=== PATIENT | female | born 1970 | race Caucasian/White ===

== ENCOUNTER 2025-08-16 10:40 | Outpatient (REF) | payer BC, SELFPAY ==
--- OUTSIDE RECORDS SUMMARY | 2024-11-25 05:41 | XMS_ITS ---
Author Organization [facility] Address [address] [place] [phone] Care Team Providers Care Enterostomal Therapy Nurse Name Role Phone TAYLER LEATHA Primary Care Provider [phone] REASON FOR VISIT (2)thyroid Encounters Encounter Location Date Provider Diagnosis [address] [address] 11/25/2024 LEATHA LESTER Hypothyroidism, unspecified type E03.9 ASSESSMENTS Encounter Date Diagnosis Assessment Notes Treatment Notes Treatment Clinical Notes Section Notes 11/25/2024 Hypothyroidism, unspecified type (ICD-10 - E03.9) PLAN OF TREATMENT Future Test Test Name Order Date T4 Free Direct (Thyroxine)-[id number] 2024 TSH-[id number] 2025 BMP8+eGFR-550033 2025
--- OUTSIDE RECORDS SUMMARY | 2024-11-26 02:32 | XMS_ITS ---
Author Organization [facility] Address [address] [place] [phone] Care Team Providers Care Community Leader Name Role Phone LEATHA LESTER Primary Care Provider [phone] REASON FOR VISIT (2)lipids Encounters Encounter Location Date Provider Diagnosis [facility] [address] [place] [address] 11/26/2024 LEATHA LESTER PLAN OF TREATMENT No Information
--- OUTSIDE RECORDS SUMMARY | 2025-01-11 09:35 | XMS_ITS ---
Author Organization [facility] Address [address] [place] [phone] Care Team Providers Care Quick Mixer Operator Name Role Phone LEATHA LESTER Primary Care Provider [phone] REASON FOR VISIT (2) b/l breast biopsy results Encounters Encounter Location Date Provider Diagnosis [facility] [address] [place] [address] 01/11/2025 LEATHA LESTER PLAN OF TREATMENT No Information
--- OUTSIDE RECORDS SUMMARY | 2025-01-12 05:12 | XMS_ITS ---
Author Organization [facility] Address [address] [place] [address] Care Team Providers Care Sanitarian Aide Name Role Phone TAYLER LEATHA Primary Care Provider REASON FOR REFERRAL Reason Set up referral for Dr. Yaneth Garcia for an abnormal breast biopsy question surgery send copy of my last note and the [facility] mammograms ultrasounds and breast biopsy results to her Diagnosis 1 Abnormal breast biop sy (R89.7) Referral Organization [facility] Referring Provider First Name LEATHA Referring Provider Last Name TAYLER Referring Provider Speciality Internal M edicine Referred Provider YANETH GARCIA Referred Provider Specialty Surgery General Notes Jessica LANGE Admin 01/2025 08:08:55 AM > faxed medical referral, note and most recent labs to [phone]>faxed separately to same number is 12-17-24 Surgical Pathology>12/21 mammogram>11/14/24 Mammo>11/14/24 U/S breast>requesting URGENT visit please<insurance referal approved and entered with a start date of 01/14/25 with 12 visits, faxed referral>encounter closed Referral Priority Urgent Referral Appointment Date 01/14/2025 PROBLEMS Problem Type ICD Code Onset Dates Problem Status W/U Status Risk SNOMED Code Notes Problem Abnormal breast biopsy (R89.7) Active confirmed [id number] Encounters Encounter Location Date Provider Diagnosis [address] [address] 01/12/2025 LEATHA LESTER Abnormal breast biopsy R89.7 ASSESSMENTS Encounter Date Diagnosis Assessment Notes Treatment Notes Treatment Clinical Notes Section Notes 01/12/2025 Abnormal breast biopsy (ICD-10 - R89.7) PLAN OF TREATMENT Referrals Referral Date Details 01/14/2025 01/14/2025, Set up r wilfred for Dr. Yaneth Garcia for an abnormal breast biopsy question surgery send copy of my last note and the [facility] mammograms ultrasounds and breast biopsy results to her, YANETH GARCIA Consultation Request Notes Referral Date Referring Provider Referred Provider Not es 01/12/2025 LEATHA LESTER SARAH Set up referral for Dr. Yaneth Garcia for an abnormal breast biopsy question surgery send copy of my last note and the [facility] mammograms ultrasounds and breast biopsy results to her
--- OUTSIDE RECORDS SUMMARY | 2025-01-25 05:18 | XMS_ITS ---
Author Organization [facility] Address [address] [place] [phone] Care Team Providers Care Supervisor Pumping Name Role Phone LEATHA LESTER Primary Care Provider REASON FOR VISIT updated pharmacy Encounters Encounter Location Date Provider Diagnosis [facility] [address] [place] [address] 01/25/2025 LEATHA LESTER PLAN OF TREATMENT No Information
--- OUTSIDE RECORDS SUMMARY | 2025-03-08 04:32 | XMS_ITS ---
Author Organization [facility] Address [address] [place] [phone] Care Team Providers Care Abrading Machine Tender Name Role Phone LEATHA LESTER Primary Care Provider REASON FOR VISIT Review Notes Encounters Encounter Location Date Provider Diagnosis [facility] [address] [place] [address] 03/08/2025 LEATHA LESTER PLAN OF TREATMENT No Information
--- OUTSIDE RECORDS SUMMARY | 2025-05-14 06:55 | XMS_ITS ---
Author Organization [facility] Address [address] [place] [phone] Care Team Providers Care Auto Dealership Porter Name Role Phone LEATHA LESTER Primary Care Provider REASON FOR VISIT canceled appt Encounters Encounter Location Date Provider Diagnosis [facility] [address] [place] [address] 05/14/2025 LEATHA LESTER PLAN OF TREATMENT No Information
--- OUTSIDE RECORDS SUMMARY | 2025-05-16 08:15 | XMS_ITS ---
Author Organization [facility] Address [address] [place] [phone] Care Team Providers Care Finishing Supervisor Plastic Sheets Name Role Phone LEATHA LESTER Primary Care Provider REASON FOR VISIT 42 6mo F/U MEDICATIONS Medication SIG (Take, Route, Frequency, Duration) Notes Start Date End Date Status hydroCHLOROthiazide 25 MG TAKE 1 TABLET BY MOUTH DAILY IN THE MORNING for 90 Unknown Mounjaro 2.5 MG/0.5ML ADMINISTER 2.5 MG UNDER THE SKIN EVERY WEEK DIRECTED for 28 Unknown Levothyroxine Sodium 150 MCG TAKE 1 TABL ET BY MOUTH EVERY DAY DIRECTED for 90 Unknown Encounters Encounter Location Date Provider Diagnosis [address] [address] 05/16/2025 LEATHA LESTER Hypothyroidism, unspecified type E03.9 ; Prediabetes R73.03 ; Primary hypertension I10 ; Other hyperlipidemia E78.49 ; Skin cancer screening Z12.83 ; Colon cancer screening Z12.11 and Abnormal mammogram R92.8 ASSESSMENTS Encounter Date Diagnosis Assessment Notes Treatment Notes Treatment Clinical Notes Section Notes 05/16/2025 Hypothyroidism, unspecified type (ICD-10 - E03.9) 05/16/2025 Prediabetes (ICD-10 - R73.03) 05/16/2025 Primary hypertension (ICD-10 - I10) 05/16/2025 Other hyperlipidemia (ICD-10 - E78.49) 05/16/2025 Skin cancer screening (ICD-10 - Z12.83) 05/16/2025 Colon cancer screening (ICD-10 - Z12.11) 05/16/2025 Abnormal mammogram (ICD-10 - R92.8) PLAN OF TREATMENT Pending Test Test Name Order Date EKG 05/16/2025 Future Test Test Name Order Date Hemoglobin [id number] 05/10/2025 T4 Free Direct (Thyroxine)-[id number] 2024 TSH-[id number] 05/10/2025 CBC, Platelet, w/o Differential-[id number] 0 05/10/2025 Lipid Panel-[id number] 05/10/2025 Hepatic Function Panel ([id number] 2024 HCV Antibody-037096 05/10/2025 BMP8+eGFR-[id number] 05/10/2025 Next Appt Details Follow Up: Follow-up 6 month s labs pending EKG today, Reason: History and Physical Notes * HPI (History of Present Illness) Category Sub-Category Detail Notes Category Not es General Follow-up hyper tension. See review of systems below
--- OUTSIDE RECORDS SUMMARY | 2025-07-25 08:37 | XMS_ITS ---
Author Organization [facility] Address [address] [place] [phone] Care Team Providers Care Residential Designer Name Role Phone LEATHA LESTER Primary Care Provider REASON FOR VISIT Referral Encounters Encounter Location Date Provider Diagnosis [facility] [address] [place] [address] 07/25/2025 LEATHA LESTER PLAN OF TREATMENT No Information
--- OUTSIDE RECORDS SUMMARY | 2025-07-26 03:40 | XMS_ITS ---
Author Organization [facility] Address [address] [place] [phone] Care Team Providers Care Internal Combustion Engine Assembler Name Role Phone LEATHA LESTER Primary Care Provider REASON FOR VISIT thyroid Encounters Encounter Location Date Provider Diagnosis [address] [address] 07/26/2025 LEATHA LESTER Hypothyroidism, unspecified type E03.9 ASSESSMENTS Encounter Date Diagnosis Assessment Notes Treatment Notes Treatment Clinical Notes Section Notes 07/26/2025 Hypothyroidism, unspecified type (ICD-10 - E03.9) PLAN OF TREATMENT Future Test Test Name Order Date TSH+Free [id number] 09/06/2025
--- OUTSIDE RECORDS SUMMARY | 2025-08-15 09:24 | XMS_ITS | Encounter Summary ---
Author Organization [facility] Address [address] [place] [address] Care Team Providers Care Front Desk Supervisor Name Role Phone Rahul Cam MD Primary Care Provider [phone] Encounter Details Date Type Department Care Team (Late Contact Info) Description 08/15/2025 9:24 AM EST Hospital Encounter [facility] Radiation Oncology [address] [place] [phone] Social History Tobacco Use Types Packs/Day Years Used Date Smoking Tobacco: Never Smokeless Tobacco: Never Alcohol Use Standard Drinks/Week Comments No 0 (1 standard drink = 0.6 oz pur e alcohol) Interpersonal Safety Answer Date Record ed Physical Abuse Unrecognized value 07/11/2025 Verbal Abuse Unrecognized value 07/11/2025 Comments No Sex and Gender Information Value Date Recorded Sex Assigned at Female 11/02/2024 8:19 AM EST Legal Sex Female 1:22 PM EST Gender Identity Female 11/02/2024 8:19 AM EST Sexual Orientation Straight 11/02/2024 8: 19 AM EST 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 Not on file Not on f ile documented as of this encounter Plan of Treatment Upcoming Encounters Date Type Department Care Team (Late Contact Info) Description 09/09/2025 9:30 AM EST Office Visit [facility] Hematology Oncology [address] [place] [phone] Breann Mendez, [address] [place] [address] documented as of this encounter Visit Diagnoses Not on filedocumented in this encounter Care Teams Front Desk Supervisor Relationship Specialty Start Date End Date Rahul Cam MD [address] [place] [phone] PCP - General Internal Medicine 11/09/16 documented as of this encounter
--- OUTSIDE RECORDS SUMMARY | 2025-08-15 09:25 | XMS_ITS | Encounter Summary ---
Author Organization [facility] Address [address] [place] [address] Care Team Providers Care [employer] Name Role Phone Rahul Cam MD Primary Care Provider + [phone] Reason for Referral * Radiation Therapy (Routine) - Pending Review Specialty Diagnoses / Procedures Referred By Marissa t Referred To Contact Radiation Oncology Diagnoses Ductal carcinoma in situ (DCIS) of right breast Procedures Rad Onc Treatment Planning Simulation Darwin Moon MD [address] [place] [address] Phone: tel: fax: Referral ID Status Reason Start Date Expiration Date V isits Requested Visits Authorized [id number] Pending Review 08/15/2025 08/15/2026 1 1 * Consultation (Routine) - Pending Review Specialty Diagnoses / Procedures Referred By Contguadalupe t Referred To Contact Radiation Oncology Diagnoses Breast neoplasm, Tis (DCIS), [facility] [address] [place] [address] Phone: tel: fax: [facility] Radiation Oncology [address] [place] [address] Phone: tel: fax: Referral ID Status Reason Start Date Expiration Date Visits Requested Visits Authorized [id number] Pending Review Specialty Services Required 5 07/24/2026 1 1 Scheduling Instructions Okay to schedule after surgery. Reason for Visit * Reason Comments Breast Cancer Consult * Consultation (Routine) - Pending Review Specialty Diagnoses / Procedures Referred By Contguadalupe t Referred To Contact Radiation Oncology Diagnoses Breast neoplasm, Tis (DCIS), right Yaneth Florian MD [address] [place] [address] Phone: tel: fax: [facility] Radiation Oncology [address] [place] [address] Phone: tel: fax: Referral ID Status Reason Start Date Expiration Date Visits Requested Visits Authorized [id number] Pending Review Specialty Services Required 5 07/24/2026 1 1 Encounter Details Date Type Department Care Team (Latest Contact Info) Description 08/15/2025 9:25 AM EST Hospital Encounter [facility] Radiation Oncology [address] [place] [phone] Darwin Moon MD [address], [place] [phone] Ductal carcinoma in situ (DCIS) of right breast (Primary Dx) Social History Tobacco Use Types Packs/Day Years Used Date Smoking Tobacco: Never Smokeless Tobacco: Never Tobacco Cessation:Counseling Given: Not Answered Alcohol Use Standard Drinks/Week Comments No 0 [...] f ile documented as of this encounter Last Filed Vital Signs Vital Sign Reading Time Taken Comments Blood Pressure 129/67 08/15/2025 9:39 AM EST Pulse 84 08/15/2025 9:39 AM EST Temperature - - Respiratory Rate - - Oxygen Saturation 100% 08/15/2025 9:39 AM EST Inhaled Oxygen Concentration - - Weight 91.9 kg (202 lb 9.6 oz) 08/15/2025 9:39 A M EST Height 167.6 cm (5' 6 ) 08/15/2025 9:39 AM EST Body Mass Index 32.7 08/15/2025 9:39 AM EST documented in this encounter Progress Notes * Negar Barton, DATA MODELING SPECIALIST - 08/15/2025 10:00 AM EST Images from the original note were not included. Oncological History: 10/31/2024 Screening Mammogram at [facility] (in PACS) Findings New area of distortion in upper outer right breast at middle third depth. More inferiorly on the MLview same depth there is new distortion. Increase calcifications in the lower outer right breast invicinity of new distortion. New area of distortion in the left upper outer quadrant at middle third depth at approximately 3:00axis, 7 cm from nipple. 11/14/2024 Diagnostic Mammogram at [facility] (in PACS) 12/17/2024 Biopsy Breasts [facility] 04/10/2025 MRI Breast Impression There is a large amount of heterogeneous nonmass background enhancement bilaterally. This limits the sensitivity of the exam and could obscure a significant abnormality. The amount of background enhancement is similar in the region of the bilateral breast biopsies. I believe this study can be used as a reference for subsequent high risk MRI. Recommend surgical excision based upon the previous pathology results. Recommend bilateral high risk MRI in one year 07/11/2025 Bilateral Excision Breast Mass with Dr. Nupur Florian. Final Diagnosis A. Right breast, excision: Ductal carcinoma in situ, 4 mm - Margins uninvolved Complex sclerosing lesions - Margins uninvolved Minute intraductal papilloma, columnar cell change/hyperplasia, usual ductal hyperplasia, sclerosing adenosis, adenosis, pseudoangiomatous stromal hyperplasia, fibroadenomatoid change, apocrine metaplasia, and cysts Microscopic changes of biopsy tract present at edge of specimen B. Right breast, anterior re-excision: Benign breast tissue with sclerosing adenosis, minute intraductal papilloma, columnar cell change/hyperplasia, usual ductal hyperplasia, adenosis, pseudoangiomatous stromal hyperplasia, apocrine metaplasia, and cysts No atypia or carcinoma identified Margins are unremarkable C. Left breast, excision: Complex sclerosing lesions - Margins uninvolved Minute intraductal papilloma, usual ductal hyperplasia, columnar cell change/hyperplasia, apocrine metaplasia, and cysts Biopsy site changes with top hat clip No atypia or carcinoma identified D. Right breast, lateral re-excision: Complex sclerosing lesion - Margins uninvolved Minute intraductal papilloma, usual ductal hyperplasia, columnar cell change/hyperplasia, fibroadenomatoid change, apocrine metaplasia, and cysts Biopsy site changes with mini cork clip E. Right breast, superior and lateral re-excision: Benign breast tissue with usual ductal hyperplasia, columnar cell change/hyperplasia, adenosis, sclerosing adenosis, fibroadenomatoid change, apocrine metaplasia, and cysts Margins are unremarkable DCIS OF THE BREAST: Resection 8th Edition - Protocol posted: 2DCIS OF THE BREAST: RESECTION - All Specimens SPECIMEN Procedure Excision (less than total mastectomy) Specimen Laterality Right TUMOR Histologic Type Ductal carcinoma in situ Size (Extent) of DCIS Estimated size (extent) of DCIS is at least (Millimeters): 4 mm Architectural Patterns Cystic hypersecretory pattern Nuclear Grade Grade III (high) Necrosis Present, focal (small foci or single cell necrosis) Microcalcifications Present in DCIS Present in nonneoplastic tissue MARGINS Margin Status All margins negative for DCIS Distance from DCIS to Closest Margin 5 mm REGIONAL LYMPH NODES Regional Lymph Node Status Not applicable (no regional lymph nodes submitted or found) PATHOLOGIC STAGE CLASSIFICATION (pTNM, AJCC 8th Edition) Reporting of pT, pN, and (when applicable) pM categories is based on information available to the pathologist at the time the report is issued. As per the AJCC (Chapter 1, 8th Ed.) it is the managingphysician's responsibility to establish the final pathologic stage based upon all pertinent information, including but potentially not limited to this pathology report. pT Category pTis (DCIS) pN Category pN not assigned (no nodes submitted or found) 08/01/[address] Mendez. Discussed aromatase inhibitor therapy. Bone density and hormone level ordered. Continued MRI due to dense breast tissue. Follow-Up 09/09/2025 Dr. Mendez. 10/21/2025 DEXA * Corinne Chopra MA - 08/15/2025 10:00 AM EST Patient is here for in office consult with Dr. Moon Patient reports some mild tenderness, otherwise no symptoms. Medications and allergies reviewed and reconciled. * Darwin Moon MD - 08/15/2025 10:00 AM EST Radiation Oncology Consult Staff Physician: Darwin Moon M.D. Requesting Physician: Yaneth Florian M.D. Date of Service: 08/15/2025 Alysa Leach (: 1970) presents today for consultation as requested by Yaneth Florian,*, regarding treatment for breast carcinoma Assessment/Plan IMPRESSION: Ms. Leach appears to be doing well. She has some fluid within the right lumpectomy and an exposed suture in the left breast. OPINIONS AND RECOMMENDATIONS: I spoke with her regarding a course of adjuvant radiation to the right breast to reduce her risk for recurrence. Given her age, the grade and the recurrence score she is at risk for recurrence. I reviewed the typical course of treatment with her and discussed the potential side effects. We also talked about the CT for planning and the tattoos for positioning. After our discussion, consent was signed. She will return shortly for the planning CT. She will receive 20 treatments. She will keep on an eye on the exposed suture. If it starts to bother her or the redness of the skin starts to spread out then she will call Dr. Florian. She has a follow with Dr. Mendez to continue discussing endocrine therapy. Subjective HISTORY OF PRESENT ILLNESS: Alysa Leach is a 55 y.o. female who was recently diagnosed with DCIS of the right breast, Grade III, Stage O, ER low positive. She has had yearly mammograms without any unusual findings until this spring when a mammogram at [facility] showed developing calcifications in the right breast and architectural distortion in the left. Biopsies returned metaplasia and adenosis. She was seen by Dr. Florian who ordered a MRI of both breasts. That study completed on 04/10/25 showed suspicious lesions in both breast, BI-RADS 4. She underwent mag seed placement in both breasts and then bilateral excisional biopsies. The left was c/w complex sclerosing lesions. The right identified ductal carcinoma in situ, 4mm, Grade III, ERweakly positive. The margins were clear. Oncotype DX recurrence score 27. She was seen by Dr. Mendez. She was referred her for adjuvant radiation. At the time of contact,she felt she was doing well. She feels her right breast is swollen, but not painful. She thinks there is a stitch coming out on the left. 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 HENT: Negative. Respiratory: Negative. Cardiovascular: Negative. Gastrointestinal: Negative. Genitourinary: Negative. Musculoskeletal: Negative. Skin: Positive for wound. Neurological: Negative. Hematological: Negative. Psychiatric/Behavioral: Negative. Breast: Positive for breast lump or mass. The Karnofsky performance scale today is 100, Fully active, able to carry on all pre-disease performed without restriction (ECOG equivalent 0). Objective PHYSICAL EXAM: Visit Vitals BP 129/67 (BP Location: Right arm, Patient Position: Sitting, BP Cuff Size: Adult) Pulse 84 Ht 1.676 m (66 ) Wt 91.9 kg (202 lb 9.6 oz) SpO2 100% BMI 32.70 kg/m?? OB Status Hysterectomy Smoking Status Never BSA 2.01 m?? Body mass index is 32.7 kg/m??. Physical Exam HENT: Head: Normocephalic. Cardiovascular: Rate and Rhythm: Normal rate and regular rhythm. Pulmonary: Effort: Pulmonary effort is normal. Breath sounds: Normal breath sounds. Chest: Comments: Right breast larger than left. There is swelling/fullness in the right lower outer quadrant with a very faint pinkness overlying the area. There is an incision in the outer lower quadrant. In the left breast on the outer lower quadrant is a healing incision. At the lateral edge a suture is exposed. There is a slight amount of erythema of the skin at the base of the suture. No suspiciousmasses in either breast. Abdominal: General: Abdomen is flat. Bowel sounds are normal. Palpations: Abdomen is soft. Musculoskeletal: General: No swelling. Cervical back: Normal range of motion. Lymphadenopathy: Upper Body: Right upper body: No supraclavicular or axillary adenopathy. Left upper body: No supraclavicular or axillary adenopathy. Skin: General: Skin is warm. Neurological: Mental Status: She is alert. DIAGNOSTIC REPORTS REVIEWED: Imaging: MRI, mammo Laboratory/Pathology: lumpectomy Procedure: excisional biopsies. RADIATION TREATMENT PLANNING SIMULATION ORDER Rad Onc Treatment Planning Simulation Ordered at: 08/15/25 1112 Is this for a new course of treatment? Yes Treatment Goal: Curative Treatment Technique: 3D INFORMATION SUPPORT PROJECT MANAGER Image Fusion? No Approximate Dose: 5,272 Measurement Unit: cGy Approximate Fractions: 20 Is Boost / Cone down anticipated? Yes Concurrent Chemotherapy? No Treatment Site: Breast Laterality: Right Is Oncotype / Mammoprint pending? No Will regional nodes be treated? No Breathhold required? No test needed? No Has the pt received prior radiation? No Pacemaker, ICD, or any Implanted Device? No Does the pt need an white sugar boiler? No Has the patient been consented? Yes Clinical Trial? No Patient Position? Supine Head / Neck Position? Head Left Arms Position? Up Legs Position? Neutral Immobilization Device(s)? Board Vac-Pallavi Board Type? Breast Board Supine IGRT anticipated? No Do you anticipate the field size being >20 cm? (i.e. whole pelvis, 3 field breast): No Contrast Needed? No CrCl cannot be calculated (No successful lab value found.). [1] Past Medical History: Diagnosis Date Breast cancer (CMS/HCC V24, CMS/HCC V28) 07/2025 Cancer (CMS/HCC V24, CMS/[facility] V28) Delayed emergence from general anesthesia Historical Medical DX 12/28/2016 DX:NO ACTIVE MEDICAL PROBLEMS History of sebaceous cyst DX:History of sebaceous cyst; COMMENT: Anterior chest wall Hypertension Hypothyroidism PONV (postoperative nausea and vomiting) 2024 [2] Past Surgical History: Procedure Laterality Date BREAST BIOPSY 12/2024 HYSTERECTOMY PROCEDURE: HISTORICAL HYSTERECTOMY HYSTERECTOMY OTHER SURGICAL HISTORY THYROID SURGERY TOTAL THYROIDECTOMY RADATIONED AFTER [3] Family History Problem Relation Name Age of Onset Hypertension Father Don Breast cancer Paternal Grandmother [4] Current Outpatient Medications Medication Sig Dispense Refill hydroCHLOROthiazide (HYDRODIURIL) 25 mg tablet Take 1 tablet (25 mg total) by mouth 1 (one) time each day in the morning. levothyroxine (SYNTHROID, LEVOTHROID) 150 mcg tablet Take 1 tablet (150 mcg total) by mouth 1 (one)time each day. Mounjaro 2.5 mg/0.5 mL injection Inject 0.5 mL (2.5 mg total) under the skin every 7 (seven) days. No current facility-administered medications for this encounter. documented in this encounter Plan of Treatment Upcoming Encounters Date Type Department Care Team (Late st Contact Info) Description 09/09/2025 9:30 AM EST Office Visit [facility] Hematology Oncology [address] [place] [phone] Breann Mendez DO [address] [place] [address] Scheduled Orders Name Type Priority Associated Diagnoses Order Schedule Rad Onc Treatment Planning Simulation Radiation Oncology Routine Ductal carcinoma in situ (DCIS) of right breast 1 Occurrences starting 08/15/2025 until 08/15/2026 Scheduled Referrals Name Type Priority Associated Diagnoses Order Schedule Ambulatory referral to Radiation Oncology Outpatient Referral Routine Once for 1 Occurrences starting 08/15/2025 until 08/15/2025 documented as of this encounter Visit Diagnoses Diagnosis Ductal carcinoma in situ (DCIS) of right breast- Primary documented in this encounter Care Teams [employer] Relationship Specialty Start Date End Date Rahul Cam MD [address] [place] [address] PCP - General Internal Medicine 11/09/16 documented as of this encounter
--- NOTE | ~2025-08-16 | MM_ITS ---
EXAMINATION: DXA BONE DENSITY AXIAL HISTORY: OSTEOPOROSIS TECHNIQUE: [employer] Dual energy absorptiometry (DEXA) of the lumbar spine, total left hip, and femoral neck was performed. COMPARISON: There are no prior studies for comparison. FINDINGS: The bone mineral density of the lumbar spine is 1.293 g/cm2, corresponding to a T-score of 0.9, and a Z-score of 0.9. This is indicative of normal bone mineral density. The bone mineral density of the left total hip is 1.020 g/cm2, corresponding to a T-score of 0.1, and a Z-score of 0.2. This is indicative of normal bone mineral density. The bone mineral density of the left femoral neck is 0.951 g/cm2, corresponding to a T-score of -0.6, and a Z-score of -0.1. This is indicative of normal bone mineral density. FRACTURE RISK: The FRAX index suggests a risk of major osteoporotic fracture of 5.3%, and of hip fracture 0.2%. MM/XR DEXA axial skeleton IMPRESSION: Based on bone mineral density, and according to World Health Organization (WHO) criteria, the diagnosis is consistent with normal bone mineral density. Statistically, 68% of repeat scans fall within 1 SD (+/- 0.010 g/cm2 for AP spine L1-L4) and 1 SD (+/- 0.012 g/cm2 for femur total) FRAX is a trademark of the [employer] [place] [employer] Met[employer], a World Health Organization (WHO) Collaborating Center. Electronically signed by: Vinayak Curiel MD 08/16/2025 11:44 AM [facility] [place]
--- OUTSIDE RECORDS SUMMARY | 2025-08-16 12:41 | XMS_ITS | Encounter Summary ---
Author Organization [facility] Address [address] [place] [address] Care Team Providers Care Solid Waste Facility Supervisor Name Role Phone Rahul Cam MD Primary Care Provider + [phone] Encounter Details Date Type Department Care Team (Late st Contact Info) Description 08/07/2025 Telephone [facility] Hematology Oncology [address] [place] [phone] Breann Mendez, DO [address] [place] [address] Social History Tobacco Use Types Packs/Day Years [...] Orientation Straight 11/02/2024 8: 19 AM EST documented as of this encounter Progress Notes * Breann Mendez, - 08/15/2025 10:15 PM EST Please find out when this Dxa is going to be so we can request the result from Evgeny before her next appt Thanks * Osiris Carmen - 08/07/2025 10:07 AM EST Order faxed * Gwen Barreto - 08/07/2025 8:20 AM EST Patient is scheduled for her bone density in October here at [facility]. She is seeking to have this donesooner and [facility] is able to give her a sooner date. She asks that this order be faxed to [facility] at [phone]. When she has the appt date and time at [facility], she will give us a call to make us aware of the date and time so we can cancel the October date here. documented in this encounter Plan of Treatment Upcoming Encounters Date Type Department Care Team (Late st Contact Info) Description 09/09/2025 9:30 AM EST Office Visit [facility] Hematology Oncology [address] [place] [phone] Breann Mendez DO [address] [place] [address] documented as of this encounter Visit Diagnoses Not on filedocumented in this encounter Care Teams Solid Waste Facility Supervisor Relationship Specialty Start Date End Date Rahul Cam MD [address] [place] [phone] PCP - General Internal Medicine 11/09/16 documented as of this encounter
--- OUTSIDE RECORDS SUMMARY | 2025-08-16 12:42 | XMS_ITS | Continuity of Care Document ---
Author Organization [facility] Address [address] [place] [address] Phone [phone] Care Team Providers Care Manager Talent Name Role Phone Rahul Cam M.D. Care Team Information Recei americo [phone] Problems Active Problems Provider Date Follicular thyroid carcinoma Tunde Carlson Onset: 05/31/2022 Essential hypertension Dante Mckeon M.D. Ons et: 05/31/2022 History of total thyroidectomy Dante Mckeon M.D. Onset: 05/31/2022 Hypothyroidism following radioiodine therapy Mervin Mckeon M.D. Onset: 05/31/2022 Hypothyroidism Dante Mckeon M.D. Onset: Social History Type Date Description Comments Sex Female Sex Unknown Tobacco Use Start: Unknown Never Smoked Cigarettes ETOH Use Never used alcohol Allergies and adverse reactions Description No Known Drug Allergies Medications Active Medications SIG Qnty Indications Order ing Provider Date Xuzntvbwgszywuaokls92 .5mg Tablets Take 1 Tablet By Mouth Every Day as Directed torey Mckeon M.D. 05/10/2022 Levothyroxine Beowxj291whm Tablets Alternate between 1/2 tablet and 1 whole tablet daily 90tabs Glo Singh NP 05/10/2022 Mounjaro2.5mg/0.5ML Solution Auto-Inject Administer 2.5 MG Under The Skin Every Week as Directed Rahul Cam M.D. Medications Administered in Office Medication SIG Qnty Indications Ordering Provider Date Injection Thyrotropin To 10 IuInjection Nurse 04/20/2022 Therapeutic, Prophylactic Or Diagnostic Injection Subq/ImInjection Nurse 04/20/2022 Injection Thyrotropin To 10 IuInjection Nurse 04/19/2022 Therapeutic, Prophylactic Or Diagnostic Injection Subq/ImInjection Nurse 04/19/2022 Vital Signs Date Vital Result Comment 07/25/2025 8:15am BP Systolic 120 mmHg BP Diastolic 84 mmHg Heart Rate 100 /min Height 66 inches 5'6 Weight 199.00 lb BMI (Body Mass Index) 32.1 kg/m2 Results Test Acquired Date Facility Test Result H/L Range Note TSH Rfx on Abnormal to Free T4 07/25/2025 [facility] TSH RFX On Abnormal To Free T4 5.170 uIU/mL High 0.450-4 .500 T4,Free (Direct) 1.53 ng/dL 0.82-1. 77 TSH Rfx on Abnormal to Free T4 11/24/2024 [facility] TSH RFX On Abnormal To Free T4 5.350 uIU/mL High 0.450-4 .500 T4,Free (Direct) 1.55 ng/dL 0.82-1. 77 Tgab+Thyroglobulin, Patricia Or LCMS 11/24/2024 [facility] Thyroglobulin Antibody <1.0 IU/mL 0.0-0.9 1 Thyroglobulin b y Patricia <0.1 ng/mL Low 1.5-38. 5 2 TSH With Reflex To FT4 11/15/2023 [facility] TSH With Reflex To FT4 0.23 uIU/mL Low (0.4-4. 2) Free T4 11/15/2023 [facility] Free T4 1.83 ng/dL High (0.70-1 .80) Thyroglobulin,Tumor MRKR W/RFLX 04/12/2023 [facility] Thyroglobulin,Tumor MRKR W/RFLX <1.0 3 Thyroglobulin Reflex Immunoassay 04/12/2023 [facility] Thyroglobulin Reflex Immunoassay <0.1 Low 4 TSH With Reflex To FT4 04/06/2023 [facility] TSH With Reflex To FT4 0.09 uIU/mL Low (0.4-4. 2) Antithyroglobulin AB 04/06/2023 [facility] Antithyroglobulin AB 3.8 IU/mL (<4.1) 5 Free T4 04/06/2023 [facility] Free T4 1.76 ng/dL (0.70-1 .80) Thyroglobulin,Tumor MRKR W/RFLX 04/06/2023 [facility] Thyroglobulin,Tumor MRKR W/RFLX <1.0 6 Thyroglobulin Reflex Immunoassay 04/06/2023 [facility] Thyroglobulin Reflex Immunoassay <0.1 Low 7 1 Thyroglobulin Antibo dy measured by Virginie Guildhall Methodology It should be noted that the presence of thyroglobulin antibodies may not be pathogenic nor diagnostic, especially at very low levels. The assay rn care transition has found that four percent of individuals without evidence of thyroid disease or autoimmunity will have positive TgAb levels up to 4 IU/mL. 2 According to the [facility] [employer] of Clinical Biochemistry, the reference interval for Thyroglobulin (TG) should be related to euthyroid patients and not for patients who underwent thyroidectomy. TG reference intervals for these patients depend on the residual mass of the thyroid tissue left after surgery. Establishing a post-operative baseline is recommended. The assay limit of quantitation is 0.1 ng/mL Thyroglobulin measured by Virginie Guildhall Immunometric Assay 3 Reference range: 0.0 to 0.9 Unit: IU/mL (NOTE) Thyroglobulin Antibody measured by Virginie Barney Methodology Test performed by [place] [place] [address] 4 Reference range: 1.5 to 38.5 Unit: ng/mL (NOTE) According to the National Academy of Clinical Biochemistry, the reference interval for Thyroglobulin (TG) should be related to euthyroid patients and not for patients who underwent thyroidectomy. TG reference intervals for these patients depend on the residual mass of the thyroid tissue left after surgery. Establishing a post-operative baseline is recommended. The assay limit of quantitation is 0.1 ng/mL Thyroglobulin measured by Virginie Barney Immunometric Assay Test performed by [employer] [place] [address] 5 Antibody measurement represents one parameter in a multicriteria diagnostic process. Correlate results with clinical presentation. This test was performed on the [employer] immunoassay system. 6 Reference range: 0.0 to 0.9 Unit: IU/mL (NOTE) Thyroglobulin Antibody measured by Virginie Guildhall Methodology Test performed by [place] [place] [address] 7 Reference range: 1.5 to 38.5 Unit: ng/mL (NOTE) According to the National Academy of Clinical Biochemistry, the reference interval for Thyroglobulin (TG) should be related to euthyroid patients and not for patients who underwent thyroidectomy. TG reference intervals for these patients depend on the residual mass of the thyroid tissue left after surgery. Establishing a post-operative baseline is recommended. The assay limit of quantitation is 0.1 ng/mL Thyroglobulin measured by Virginie Guildhall Immunometric Assay Test performed by [employer], [address] [place] [address] Procedures Date Code Description Status 04/20/2022 J3240 Injection Thyrotropin To 10 Iu Completed 04/20/2022 00229 Therapeutic, Prophylactic Or Diagnostic Injection Subq/Im Completed 04/19/2022 J3240 Injection Thyrotropin To 10 Iu Completed 04/19/2022 75708 Therapeutic, Prophylactic Or Diagnostic Injection Subq/Im Completed Medical Devices Description No Information Available Encounters Type Date Location Provider Dx Diagnosis Office Visit 07/25/2025 8:15a Main Office Glo Singh NP E89.0 Postprocedural hypothyroidism C73 Malignant neoplasm o f thyroid gland Assessments Date Code Description Provider 07/25/2025 E89.0 Postsurgical hypothyroidism Glo Singh NP 07/25/2025 C73 Malignant neoplasm of thyroi d gland Glo Singh NP Plan of Treatment No Information Available Functional Status Description No Information Available Mental Status Description No Information Available Referrals Refer to Dr Reason for Referral Status Appt Siomara Smith M.D. Created [address] [place] [address] Drive [address] [place] [address] [phone] Dante Mckeon M.D. Created [address] [place] [address] Drive [address] [place] [address] [phone] Dante Mckeon M.D. HYPOTHYROID Created [address] [place] [address] Drive [address] [place] [address] [phone]
--- OUTSIDE RECORDS SUMMARY | 2025-08-16 12:42 | XMS_ITS | Patient Health Record ---
Author Organization [facility] Address [address] [place] [phone] Care Team Providers Care Restaurant Hourly Manager Name Role Phone LEATHA LESTER Primary Care Provider [phone] ALLERGIES No Known Allergies REASON FOR REFERRAL Referral Organization [facility] Referring Provider First Name LEATHA Referring Provider Last Name TAYLER Referring Provider Speciality Internal edicine General Notes error Referral Priority Routine Referral Organization [facility] Referring Provider First Name LEATHA Referring Provider Last Name TAYLER Referring Provider Speciality Internal edicine General Notes error Referral Priority Routine Referral Organization [facility] Referring Provider First Name LEATHA Referring Provider Last Name TAYLER [facility] Referred Provider BENITO CATHERINE Referred Provider Specialty Internal Med [facility] General Notes Siomara LANGE Call Ctr 11/16/2024 02:10:31 PM > Brittany called from [facility] for an insurance referral to Dr Siomara Catherine , reason-C73, appointment date 11/19/24 at 215 pm, visits-6, insurance confirmed, Jessica LANGE Admin 11/20/2024 01:12:29 PM > referral approved and faxed to [phone]>encounter closed Referral Priority Routine Referral Appointment Date 11/19/2024 Reason Set up referral for Dr. Yaneth Garcia for an abnormal breast biopsy question surgery send copy of my last note and the [facility] mammograms ultrasounds and breast biopsy results to her Diagnosis 1 Abnormal breast biop sy (R89.7) Referral Organization [facility] Referring Provider First Name LEATHA Referring Provider Last Name TAYLER Referring Provider Speciality Internal edicine Referred Provider YANETH GARCIA Referred Provider Specialty Surgery General Notes Whitney LANGEi P Admin 01/2025 08:08:55 AM > faxed medical referral, note and most recent labs to [phone]>faxed separately to same number is 12-17-24 Surgical Pathology>12/21 mammogram>11/14/24 Mammo>11/14/24 U/S breast>requesting URGENT visit please<insurance referal approved and entered with a start date of 01/14/25 with 12 visits, faxed referral>encounter closed Referral Priority Urgent Referral Appointment Date 01/14/2025 Referral Organization [facility] Referring Provider First Name LEATHA Referring Provider Last Name TAYLER Referring Provider [facility] General Notes Whitney LANGEi P Admin 02:56:23 PM > per incoming document pt has appt on 03/14/[address] Kesha Robison [phone] for N60.89>12v>referral approved and faxed to [facility] Breast Specialist at [phone] Referral Priority Routine Reason D05.11 Referral Organization [facility] Referring Provider First Name LEATHA Referring Provider Last Name TAYLER Referring Provider [facility]ity [facility] Referred Provider SHARON ZARATE Referred Provider Specialty Hematology General Notes Whitney LANGEi P Admin 12:09:05 PM > per incoming document pt has appt on 08/01/28>99visits>Do5.11>referral approved and faxed to [phone]>encounter closed Referral Priority Routine Referral Appointment Date 08/01/2025 MEDICATIONS Medication SIG (Take, Route, Frequency, Duration) Notes Start Date End Date Status Mounjaro 2.5 MG/0.5ML ADMINISTER 2.5 MG UNDER THE SKIN EVERY WEEK DIRECTED for 28 Unknown Levothyroxine Sodium 150 MCG TAKE 1 TABL ET BY MOUTH EVERY DAY DIRECTED for 90 Unknown hydroCHLOROthiazide 25 MG TAKE 1 TABLET BY MOUTH DAILY IN THE MORNING for 90 Active SOCIAL HISTORY Tobacco Use: Social History Observation Description Date Details (start date - stop date) Never Smoker NA - NA Sex Assigned At : Social History Observation Description Sex Assigned At Unknown Smoking Question Answer Notes Are you a: never smoker PROBLEMS Problem Type ICD Code Onset Dates Problem Status W/U Status Risk SNOMED Code Notes Problem Abnormal mammogram (R92.8) Active confirmed 636202967 Problem Primary hypertension (I10) Active confirmed 59039411 Problem Hypothyroidism, unspecified type (E03.9) Active confirmed 34985801 Problem Other hyperlipidemia (E78.49) Active confirmed 07902054 Problem Abnormal breast biopsy (R89.7) Active confirmed 003076351 VITAL SIGNS Blood pressure diastolic 78 mm Hg 11/21/2024 Height 70 in 11/21/2024 Blood pressure systolic 126 mm Hg 11/21/2024 Weight 202 lbs 11/21/2024 BMI 28.98 kg/m2 11/21/2024 Encounters Encounter Location Date Provider Diagnosis [address] [address] 11/14/2024 LEATHA LESTER [place] [id number] 11/15/2024 LEATHA LESTER [address] [address] 11/21/2024 LEATHA LESTER Hypothyroidism, unspecified type E03.9 ; Prediabetes R73.03 ; Primary hypertension I10 ; Other hyperlipidemia E78.49 and Abnormal mammogram R92.[address] [address] 11/25/2024 LEATHA LESTER Hypothyroidism, unspecified type E03.[address] [address] 11/26/2024 LEATHA LESTER [address] [address] 01/11/2025 LEATHA LESTER [address] [address] 01/12/2025 LEATHA LESTER Abnormal breast biop sy R89.[address] [address] 01/25/2025 LEATHA LESTER [address] [address] 03/08/2025 LEATHA LESTER [address] [address] 05/14/2025 LEATHA LESTER [address] [address] 05/16/2025 LEATHA LESTER Hypothyroidism, unspecified type E03.9 ; Prediabetes R73.03 ; Primary hypertension I10 ; Other hyperlipidemia E78.49 ; Skin cancer screening Z12.83 ; Colon cancer screening Z12.11 and Abnormal mammogram R92.8 [facility] [address] [place] [address] 07/25/2025 LEATHA LESTER [facility] [address] [place] [address] 07/26/2025 LEATHA TAYLER Hypothyroidism, unspecified type E03.9 ASSESSMENTS Encounter Date Diagnosis Assessment Notes Treatment Notes Treatment Clinical Notes Section Notes 07/26/2025 Hypothyroidism, unspecified type (ICD-10 - E03.9) 01/12/2025 Abnormal breast biopsy (ICD-10 - R89.7) 11/25/2024 Hypothyroidism, unspecified type (ICD-10 - E03.9) 05/16/2025 Prediabetes (ICD-10 - R73.03) 05/16/2025 Hypothyroidism, unspecified type (ICD-10 - E03.9) 11/21/2024 Prediabetes (ICD-10 - R73.03) Diet exercise weight management [facility] check blood sugar check A1c 11/21/2024 Hypothyroidism, unspecified type (ICD-10 - E03.9) History of follicular thyroid cancer status post total thyroidectomy. Continue follow-up with endocrinology continue treatment as above check TSH thyroglobulin and antibodies have been negative 11/21/2024 Primary hypertension (ICD-10 - I10) Blood pressure and recheck stable well-controlled no added salt diet check electrolytes liberalize potassium in the diet 05/16/2025 Primary hypertension (ICD-10 - I10) 11/21/2024 Other hyperlipidemia (ICD-10 - E78.49) Recheck in 6 months total cholesterol goal is 200 LDL optimally less than 100 05/16/2025 Other hyperlipidemia (ICD-10 - E78.49) 11/21/2024 Abnormal mammogram (ICD-10 - R92.8) Awaiting biopsy. Probably recheck mammogram ultrasound in 6 months if negative 05/16/2025 Skin cancer screening (ICD-10 - Z12.83) 05/16/2025 Colon cancer screening (ICD-10 - Z12.11) 05/16/2025 Abnormal mammogram (ICD-10 - R92.8) PLAN OF TREATMENT Pending Test Test Name Order Date EKG 05/16/2025 US Breast Left 04/13/2023 Future Test Test Name Order Date BMP8+[id number] 12/22/2023 TSH reflex to [id number] 01/10/2024 Urine Culture, Routine-[id number] 06/06/2024 T4 Free Direct (Thyroxine)-304599 2024 TSH-[id number] 2025 BMP8+eGFR-[id number] 2025 Hemoglobin P1c-[id number] 05/10/2025 T4 Free Direct (Thyroxine)-748853 2024 TSH-873605 05/10/2025 CBC, Platelet, w/o Differential-[id number] 0 05/10/2025 Lipid Panel-[id number] 05/10/2025 Hepatic Function Panel (7)-[id number] 2024 HCV Antibody-[id number] 05/10/2025 BMP8+eGFR-[id number] 05/10/2025 TSH+Free T4-348856 09/06/2025 Insurance Providers Payer Name Payer Address Payer Phone Subscriber Number Group Number Insured Name Patient Relationship to Insured Coverage Start Date Coverage End Date [employer] [address] [place] [address] [phone] [id number] EDUAR GRAHAM Self - patient is the insured 3 MEDICAL (GENERAL) HISTORY Medical History History ICD Code htn Hypothyroidism Multinodular goiter Total abdominal hysterectomy. Ovaries in Mammogram July 2023 Cardiac echo 2019 EF 60% COVID 2 vaccinations. Tetanus shot 2012. Prediabetes. Last A1c 6.1. History of follicular thyroid cancer sta tus post thyroidectomy History of breast cysts April 2023 stress echo normal Mammogram October 2024 left breast abno rmality additional imaging ordered Colonoscopy September [address] Sa malhotra rechchase in 10 years Follow-up mammogram ultrasou nd and MRI with evaluation [facility] deciding on biopsy versus monitoring Surgical History Surgery Date(Month/Year) thyroidecomy hysterectomy Hospitalization History Reason Date(Month/Year) covid 2022
--- OUTSIDE RECORDS SUMMARY | 2025-08-16 12:42 | XMS_ITS | Encounter Summary ---
Author Organization [facility] Address [address] [place] [address] Care Team Providers Care Memory Care Director Name Role Phone Rahul Cam MD Primary Care Provider [phone] Encounter Details Date Type Department Care Team (Late Contact Info) Description 07/25/2025 Results Follow-Up Breast [facility] [address] [place] [phone] Yaneth Florian MD [address] [place] [phone] Social History Tobacco Use Types Packs/Day Years [...] AM EST documented as of this encounter Plan of Treatment Upcoming Encounters Date Type Department Care Team (Late Contact Info) Description 09/09/2025 9:30 AM EST Office Visit [facility] Hematology Oncology [address] [place] [phone] Breann Mendez, DO [address] [place] [address] documented as of this encounter Visit Diagnoses Not on filedocumented in this encounter Care Teams Memory Care Director Relationship Specialty Start Date End Date Rahul Cam MD [address] [place] [id number] PCP - General Internal Medicine 11/09/16 documented as of this encounter
--- OUTSIDE RECORDS SUMMARY | 2025-08-16 12:42 | XMS_ITS | Clinical Summary ---
Author Organization [facility] Address [address] [place] [address] Phone Care Team Providers Care Compressor Mechanic Name Role Phone Rahul Cam MD Primary Care Provider [phone] Allergies No known active allergies Medications levothyroxine (SYNTHROID, LEVOTHROID) 150 mcg tablet Take 1 tablet (150 mcg total) by mouth 1 (one) time each day. 09/19/2024 Active hydroCHLOROthiaz yasemin (HYDRODIURIL) 25 mg tablet Take 1 tablet (25 mg total) by mouth 1 (one) time each day in the morning. 09/19/2024 Active Mounjaro 2.5 mg/0.5 mL injection Inject 0.5 mL (2.5 mg total) under the skin every 7 (seven) days. 10/09/2024 Active Active Problems Problem Noted Date Diagnosed Date Ductal carcinoma in situ (DCIS) of right breast 08/15/2025 Atypical lobular hyperplasia (ALH) of breast 07/2025 Complex sclerosing lesion of breast 05/23/2025 Encounters Date Type Department Care Team Description 08/15/2025 9:25 AM [facility] Hospital Encounter [facility] Radiation Oncology [address] [place] [phone] Darwin Moon MD Ductal carcinoma in situ (DCIS) of right breast (Primary Dx) 08/15/2025 9:24 AM EST Hospital Encounter [facility] Radiation Oncology [address] [place] [phone] 08/07/2025 Telephone [facility] Hematology Oncology [address] [place] [phone] Breann Mendez DO 08/06/2025 Telephone [facility] Radiation Oncology [address] [place] [phone] Gosia Azar MA 08/01/2025 3:00 PM EST Office Visit [facility] Hematology Oncology [address] [place] [phone] Breann Mendez DO Ductal carcinoma in situ (DCIS) of breast, unspecified laterality (Primary Dx); Routine health maintenance; Encounter for osteoporosis screening in asymptomatic postmenopausal patient 07/30/2025 Telephone [facility] Radiation Oncology [address] [place] [phone] Gosia Azar MA 07/30/2025 Telephone [facility] Radiation Oncology [address] [place] [phone] Gosia Azar MA 07/25/2025 Results Follow-Up Breast Care [address] [phone] Yaneth Florian MD 07/24/2025 Telephone Breast [address] [phone] Yaneth Florian MD 07/24/2025 Results Follow-Up Breast [address] [phone] Yaneth Florian MD 07/22/2025 Telephone General Surgery [facility] [address] [phone] Kaitlin Chapin MA 07/17/2025 1:30 PM EST Office Visit [address] [phone] Yaneth Florian MD Complex sclerosing lesion of breast (Primary Dx) 07/11/2025 7:38 AM EDT Anesthesia Event [facility] Main OR [address] [place] [phone] Fabio Raya MD Devlin, Brandon, SRNA 07/11/2025 7:30 AM EDT - 07/11/2025 9:[address] [facility] OR [address] [place] [phone] Yaneth Florian MD BILATERAL EXCISION BREAST MASS W/ Bilateral Magseed localizations, RIGHT BREAST INTRAOP ULTRASOUND, INTRAOP LOCALIZATION RIGHT BREAST MASS [48982 (CPT )] 07/11/2025 6:31 AM EDT - 07/11/2025 11:59 PM EDT Hospital Encounter [facility] at [address] [phone] Breast mass Discharge Disposition: Home or Self Care 07/11/2025 6:06 AM EDT - 07/11/2025 3:23 PM EDT Hospital Encounter [facility] OR [address] [place] [phone] Yaneth Florian MD Atypical lobular hyperplasia (ALH) of breast; Complex sclerosing lesion of breast Discharge Disposition: Home or Self Care 07/04/2025 2:15 PM EDT - 07/04/2025 11:59 PM EDT Hospital Encounter [facility] at [address] [phone] Discharge Disposition: Home or Self Care 07/01/2025 Telephone General Surgery - [place] [address] [phone] Yaneth Florian MD 06/28/2025 Telephone General Surgery [address] [phone] Yaneth Florian MD 05/29/2025 Telephone General Surgery [address] [phone] Marion Anderson MA from Last 3 Months Surgical History Surgery Date Site/Laterality Comments HYSTERECTOMY PROCEDURE: HISTORICAL HYSTERECTOMY TOTAL THYROIDECTOMY RADATIONED AFTER THYROID SURGERY OTHER SURGICAL HISTORY BREAST BIOPSY 12/2024 HYSTERECTOMY Medical History Medical History Date Comments Historical Medical DX 12/28/2016 DX:NO ACTI VE MEDICAL PROBLEMS History of sebaceous cyst DX:His tory of sebaceous cyst; COMMENT: Anterior chest wall Hypothyroidism Delayed emergence from gener al anesthesia Hypertension Cancer ([facility] V24, [facility] V28) PONV (postoperative nausea and vomiting) 2024 Breast cancer ([facility] V24, [facility] V28) 07/2025 Family History Medical History Relation Name Comments Hypertension Father Don Breast cancer Paternal Grandmother Relation Name Status Comments Father Don Alive Mother Alive Paternal Grandmother Social History Tobacco Use Types Packs/Day Years [...] Not on file Not on f ile Obstetrics History Para Term AB IAB SAB Ectopic Multiple Livin g Live Births 0 0 0 0 0 0 0 0 Last Filed Vital Signs Vital Sign Reading Time Taken Comments Blood Pressure 129/67 08/15/2025 9:39 AM EST Pulse 84 08/15/2025 9:39 AM EST Temperature 37.1 C (98.7 F) 08/01/2025 3:05 PM EST Respiratory Rate 16 07/11/2025 11:50 AM EDT Oxygen Saturation 100% 08/15/2025 9:39 AM EST Inhaled Oxygen Concentration - - Weight 91.9 kg (202 lb 9.6 oz) 08/15/2025 9:39 A M EST Height 167.6 cm (5' 6 ) 08/15/2025 9:39 AM EST Body Mass Index 32.7 08/15/2025 9:39 AM EST Plan of Treatment Upcoming Encounters Date Type Department Care Team (Late st Contact Info) Description 09/09/2025 9:30 AM EST Office Visit [facility] Hematology Oncology [address] [place] [phone] Breann Mendez, [address] [place] [address] Health Maintenance Due Date Last Done Comments Breast Cancer Screening 1970 DTaP,Tdap,and Td Vaccines (1 - Tdap) 1989 Hepatitis B Vaccines (1 of 3 - 19+ 3-dose series) 1989 Pneumococcal Vaccine: 50+ Years (1 of 2 - PCV) 1989 Zoster Vaccines (1 of 2) 1989 Cervical Cancer Screening: P ap Smear 1991 RSV Immunization Adult Patients (1 - Risk 50-74 years 1-dose series) 01/07/2020 COVID-19 Vaccine (3 - Modern a risk series) 12/31/2020 12/03/2020, 11/05/2020 Cholesterol Screening (Lipid Panel) 08/10/2022 HIV Screening 08/10/2022 Hepatitis C Screening 08/10/2022 Social Influencers of Health Screening 08/10/2022 Depression Screening 09/12/2024 Hypertension/CHF/CAD Annual BMP Blood Test 11/02/2024 Influenza Vaccine (#1) 2025 Colorectal Cancer Screening: Colonoscopy 11/02/2034 11/02/2024 HIB Vaccines Aged Out No longer eligi ble based on patient's age to complete this topic HPV Vaccines Aged Out No longer eligi ble based on patient's age to complete this topic Hepatitis A Vaccines Aged Out No long er eligible based on patient's age to complete this topic IPV Vaccines Aged Out No longer eligi ble based on patient's age to complete this topic MMR Vaccines Aged Out No longer eligi ble based on patient's age to complete this topic Meningococcal ACWY Vaccine Aged Out N o longer eligible based on patient's age to complete this topic Meningococcal B Vaccine Aged Out No l onger eligible based on patient's age to complete this topic RSV Immunization Patients Under 20 months Aged Out No longer eligible b ased on patient's age to complete this topic Varicella Vaccines Aged Out No longer eligible based on patient's age to complete this topic Medical Devices Implanted Type Area Senior Process Engineer Device Identifier Shelf Expiration Date Model / Serial / Lot Marker 18ga Magseed 7cm - [id number] Implanted:Qty: 1 on 07/04/2025 by Mario Moncada MD at [facility] Imaging Implants Right: Breast [employer] [id number] 11/09/2026 [id number] Marker 18ga Magseed 12cm - [id number] Implanted:Qty: 1 on 07/04/2025 by Mario Moncada MD at [facility] Imaging Implants Left: Breast [employer] [id number] 01/09/2027 [id number] Procedures Procedure Name Priority Date/Time Associated Diagnosis Comments US BREAST LIMITED RIGHT Routine 07/11/2025 10:23 AM EDT MG MAMMO BREAST SPECIMEN (STATISTICS) Routine 07/11/2025 9:28 AM EDT Breast mass TISSUE EXAM Routine 07/11/2025 8:47 AM EDT Atypical lobular hyperplasia (ALH) of breast Complex sclerosing lesion of breast TH AN ENDOTRACHEAL(NO CHARGE) Routine 07/11/2025 7:54 AM EDT AL EXC CYST/ABERRANT BREAST TISSUE OPEN MALE/FEMALE 1/> LESION 07/11/2025 7:37 AM EDT Atypical lobular hyperplasia (ALH) of breast Complex sclerosing lesion of breast Case Notes MAGSEED 07/04 @ 2:30 Special Needs Bilateral Excision of breast masses with bilateral magseeds 90 mins please MG PLCMNT BREAST SEED LOC DEV 1ST LESION BILAT Routine 07/04/2025 3:01 PM EDT Breast mass ECG 12-LEAD Routine 06/27/2025 8:23 AM EDT Atypical lobular hyperplasia (ALH) of breast Complex sclerosing lesion of breast COLONOSCOPY Routine 11/02/2024 9:48 AM EST Colon cancer screening from Last 3 Months or Most Recently Relevant to Health Maintenance Results * US Breast Limited Right (07/11/2025 10:23 AM EDT) Anatomical Region Laterality Modality Breast Right Ultrasound 07/11/2025 12:0 6 PM EDT Impressions 07/11/2025 12:16 PM EDT Despite intraoperative sonographic assessment and needle placement at 2 additional sites the biopsy site marker of interest was not retrieved. ASSESSMENT: BI-RADS 0: INCOMPLETE - need additional imaging evaluation and/or prior mammograms for comparison RECOMMENDATION(S): Await final pathology results 1: Recommend short interval follow-up diagnostic mammography RIGHT in approximately 6 months [facility]amm[facility] location[facility] at [address], [address] -------- FINAL REPORT -------- Dictated By: Mario Moncada Dictated Date: 07/11/2025 12:06 ET Assigned Physician: Mario Moncada Reviewed and Electronically Signed By: Mario Moncada Signed Date: 07/11/2025 12:16 ET Workstation ID: [id number] Transcribed By: Self Edit Transcribed Date: 07/11/2025 12:06 ET Narrative 07/11/2025 12:16 PM EDT EXAM: BREAST ULTRASOUND, RIGHT Intraoperative consultation was requested during lumpectomy. HISTORY: Pathology at time of previous biopsy warranting excision. Prior mag seed localization right breast. Intraoperative ultrasound consultation was requested. Initial breast excision radiograph demonstrated the mag seed. The biopsy site marker was not retrieved. TECHNIQUE: RIGHT BREAST. High-frequency linear transducer grayscale examination. Color mapping was performed. Examination targeted to the area of concern. I scrubbed into the case and performed real-time ultrasound assessment. Intraoperative high-frequency linear transducer ultrasound was performed around the excision site. Initially a linear bright reflector was identified. Ultrasound was used to localize and guide placement of a needle adjacent to the bright linear reflector in the right breast. The needle was left in place and Dr. Florian performed additional excision. Subsequent specimen radiography confirmed a barrel-shaped tissue marker. However, this does not correspond to the biopsy site marker of clinical concern. Repeat scanning was attempted. A complex cyst was identified with some bright reflectors along the margin. I suspected that this represented a hematoma with an adjacent biopsy site marker. Ultrasound was used to localize and guide placement of a 2nd needle adjacent to the area of interest. Dr. Florian excised the additional area. Specimen radiography demonstrated a round mass with some marginal coarse calcification. No biopsy site marker was retrieved. It was decided to conclude the exam. COMPARISON: Previous mammography was reviewed prior to travel into the operating room. FINDINGS: Excision cavity. Bright linear reflector represented a barrel biopsy site marker. This does not correlate to the top hat-shaped biopsy site marker of interest. A 2nd bright reflector was localized and correlated to some coarse calcifications. Procedure Note Mario Moncada MD - 07/11/2025 EXAM: BREAST ULTRASOUND, RIGHT Intraoperative consultation was requested during lumpectomy. HISTORY: Pathology at time of previous biopsy warranting excision. Priormag seed localization right breast. Intraoperative ultrasound consultation was requested. Initial breast excision radiograph demonstrated the mag seed. The biopsysite marker was not retrieved. TECHNIQUE: RIGHT BREAST. High-frequency linear transducer grayscale examination. Color mapping wasperformed. Examination targeted to the area of concern. I scrubbed into the case and performed real-time ultrasound assessment. Intraoperative high-frequency linear transducer ultrasound was performedaround the excision site. Initially a linear bright reflector was identified. Ultrasound was used to localize and guide placement of a needle adjacentto the bright linear reflector in the right breast. The needle was left in place and Dr. Florian performed additionalexcision. Subsequent specimen radiography confirmed a barrel-shaped tissue marker.However, this does not correspond to the biopsy site marker of clinicalconcern. Repeat scanning was attempted. A complex cyst was identified with somebright reflectors along the margin. I suspected that this represented ahematoma with an adjacent biopsy site marker. Ultrasound was used to localize and guide placement of a 2nd needleadjacent to the area of interest. Dr. Florian excised the additional area. Specimen radiography demonstrated a round mass with some marginal coarsecalcification. No biopsy site marker was retrieved. It was decided to conclude the exam. COMPARISON: Previous mammography was reviewed prior to travel into theoperating room. FINDINGS: Excision cavity. Bright linear reflector represented a barrel biopsy site marker. Thisdoes not correlate to the top hat-shaped biopsy site marker of interest. A 2nd bright reflector was localized and correlated to some coarsecalcifications. IMPRESSION: Despite intraoperative sonographic assessment and needle placement at 2additional sites the biopsy site marker of interest was not retrieved. ASSESSMENT: BI-RADS 0: INCOMPLETE - need additional imaging evaluation and/or priormammograms for comparison RECOMMENDATION(S): Await final pathology results 1: Recommend short interval follow-up diagnostic mammography RIGHT inapproximately 6 months [facility]amm[facility] location[facility] at [address], [address] -------- FINAL REPORT -------- Dictated By: Mario Moncada Dictated Date: 07/11/2025 12:06 ET Assigned Physician: Mario Moncada Reviewed and Electronically Signed By: Mario Moncada Signed Date: 07/11/2025 12:16 ET Workstation ID: [id number] Transcribed By: Self Edit Transcribed Date: 07/11/2025 12:06 ET us ThereseAurora Florian MD IMG US PROCEDURES Final Result * MG Mammo Breast Specimen (Statistics) (07/11/2025 9:28 AM EDT) Anatomical Region Laterality Modality Breast N/A Mammography 07/11/2025 12:1 6 PM EDT Addenda Addendum by Mario Moncada MD on 07/11/2025 12:24 PM EDT EXAM: SPECIMEN RADIOGRAPHY, BILATERAL HISTORY: The patient underwent bilateral excision after mag seed localization. I scrubbed into the case during the right breast procedure and performed intraoperative ultrasound COMPARISON: Prior imaging was reviewed TECHNIQUE: Specimen radiography of right breast specimens performed in the operating room Left breast specimen radiography was performed ADDITIONAL IMAGING: Additional specimen radiography from excision of additional areas in the right breast was performed in the operating room Computer aided detection was not utilized. TISSUE DENSITY: The breasts are heterogeneously dense, which may obscure small masses. (BI-RADS category C) FINDINGS: RIGHT BREAST: Right breast specimen radiograph demonstrates the mag seed. 2 Additional right breast specimen radiographs were performed. The initial reexcision specimen of the right breast demonstrates a barrel shaped tissue marker. This correlates to a previous biopsy. A 2nd reexcision specimen radiograph demonstrates a round mass with some marginal coarse calcification. The top hat-shaped biopsy site marker of interest was not demonstrated on any of the 3 specimen radiographs of the right breast. LEFT BREAST: A left breast specimen radiograph was performed. This demonstrates a mag seed and biopsy site marker No additional suspicious left breast findings IMPRESSION: The TOP HAT-shaped biopsy site marker in the right breast was NOT demonstrated on any of the 3 right breast specimen radiographs The mag seed was removed from the right breast. The top has-shaped biopsy site marker and mag seed was removed from the left breast. ASSESSMENT: BI-RADS 0: INCOMPLETE - need additional imaging evaluation and/or prior mammograms for comparison RECOMMENDATION(S): 1: Await final pathology results BILATERAL [facility]amm[facility] location[facility] at [address], [address] -------- FINAL REPORT -------- Dictated By: Mario Moncada Dictated Date: 07/11/2025 12:16 ET Assigned Physician: Mario Moncada Reviewed and Electronically Signed By: Mario Moncada Signed Date: 07/11/2025 12:24 ET Workstation ID: [id number] Transcribed By: Self Edit Transcribed Date: 07/11/2025 12:16 ET Narrative 07/11/2025 9:28 AM EDT This order has been auto-finalized and does not contain a result. us Yaneth Florian MD IMG BI PROCEDURES Edite d Result - Final * Tissue exam (07/11/2025 8:47 AM EDT) Addendum Block A9 was sent to [facility] (CLIA #[id number]), [place], [place]., for Oncotype DX at the request of Dr. Yaneth Florian. Their results are as follows: RECURRENCE SCORE RESULT: 27 Form Block Maker(s): Krys Barba MD Report Date: 02-Aug-2025 (See scanned copy of Oncotype DX report) 3:41 PM EST [facility] Addendum electronically signed by Mary Chowdary MD on 08/05/2025 at 1541 EST Final Diagnosis A. Right breast, excision: Ductal [...] apocrine metaplasia, and cysts Margins are unremarkable 3:41 PM EST [facility] at 0843 EST Comment A. The incidental focus of ductal carcinoma in situ is characterized by cells with high nuclear grade partially involving lobules with cystic hypersecretory hyperplasia. Although calcifications are present within the DCIS, the patient has extensive calcifications within non-neoplastic breast tissue throughout the specimens. Dr. Castaneda provided second review for new malignancy. Notification sent to Dr. Florian on 07/19/25. 3:41 PM EST [facility] ([facility]) [facility] Synoptic Checklist DCIS OF THE BREAST: Resection DCIS OF THE BREAST: RESECTION - All Specimens 8th Edition - Protocol posted: 12/02/2021 SPECIMEN Procedure: Excision (less than total mastectomy) Specimen Laterality: Right TUMOR Histologic Type: Ductal carcinoma in situ Size (Extent) of DCIS: Estimated size (extent) of DCIS is at least (Millimeters): 4 mm Architectural Patterns: Cystic hypersecretory pattern Nuclear Grade: Grade III (high) Necrosis: Present, focal (small foci or single cell necrosis) Microcalcifications : Present in DCIS Microcalcifications : Present in nonneoplastic tissue MARGINS Margin Status: All margins negative for DCIS Distance from DCIS to Closest Margin: 5 mm REGIONAL LYMPH NODES Regional Lymph Node Status: Not applicable (no regional lymph nodes submitted or found) PATHOLOGIC STAGE CLASSIFICATION (pTNM, AJCC 8th Edition) Reporting of pT, pN, and (when applicable) pM categories is based on information available to the pathologist at the time the report is issued. As per the AJCC (Chapter 1, 8th Ed.) it is the managing physician's responsibility to establish the final pathologic stage based upon all pertinent information, including but potentially not limited to this pathology report. pT Category: pTis (DCIS) pN Category: pN not assigned (no nodes submitted or found) 3:41 PM EST [facility]) [facility] Gross Description A. Breast, Right, RIGHT BREAST MASS GREEN-ANTERIOR BLUE-INFERIOR ORANGE-LATERAL YELLOW-MEDIAL BLACK-POSTERIOR RED-SUPERIOR: Labeled right breast ID 1 . Received fresh on 07/11/2025 (in formalin at 9:22 AM), is a single, fairly intact, 24 gram, 5.0 cm (medial to lateral) x 4.0 cm (superior to inferior) x up to 2.1 cm (anterior to posterior) excision which is received previously inked by the surgeon as follows: anterior-green, inferior-blue, lateral-orange, medial-yellow, posterior-black and superior-red. The specimen is serially sectioned sequentially from medial to lateral into seven slices. The contiguous cut surfaces show dense, yellow-white to pink fibroadipose tissue. A mass is not identified. A clip or Mag seed are not identified. The specimen is submitted in entirety in nineteen cassettes, per diagram. A mag seed is found at microtomy in cassette 16. 1-3 medial margin, taken perpendicularly, two pieces-slice 1 4-16 sequential sections (16-Mag seed found at microtomy), one piece each-slices 2-6 17-19 lateral margin, taken perpendicularly, two pieces each-slice 7 Time removed from patient (warm ends < cold ischemia starts): 9:18 AM (A-C), 10:14 AM (D & E) 07/11/2025 Time put in formalin (cold ischemia ends): 9:22 AM (A-C), 10:24 AM (D & E)07/11/2025 Total cold ischemic time: 4 minutes (A-C), 10 minutes (D & E) Time received in pathology (transport time ends): 9:21 AM Time tissue exits final stage of formalin on tissue processor: 9:00 PM 07/11/2025 Total fixation time (Ideally greater than 6 hours and less than 72 hours): A-C: Approximately 11.5 hours, D-E: Approximately 10.5 hours B. Breast, Right, ANTERIOR RE-EXCISON RIGHT BREAST GREEN- NEW ANTERIOR MARGIN BLUE-INFERIOR ORANGE-LATERAL YELLOW-MEDIAL BLACK-POSTERIOR RED-SUPERIOR: Labeled anterior breast R ID 2 . Received fresh on 07/11/2025 (in formalin at 9:22 AM), is a single, fairly intact, 18 gram, re-excision which is received previously inked by the surgeon as follows: new anterior margin-green, inferior-blue, lateral-orange, medial-yellow, posterior-black and superior-red. The specimen measures 4.9 cm (superior to inferior) x 2.9 cm (anterior to posterior) x up to 1.1 cm (medial to lateral). The specimen is serially sectioned sequentially from superior to inferior into six slices. The cut surfaces show dense, yellow-white, focally cystic fibroadipose tissue. Masses are absent. A clip or Mag seed are not identified. The specimen is submitted in entirety in thirteen cassettes, per diagram. 1-superior margin, perpendicularly bisected, three pieces-slice 1 2-10 sequential sections, one piece each-slices 2-5 11-13 inferior margin, taken perpendicularly (11-two pieces, 12-13: three pieces each)-slice 6 C. Breast, Left, LEFT BREAST MASS GREEN-ANTERIOR BLUE-INFERIOR ORANGE-LATERAL YELLOW-MEDIAL BLACK-POSTERIOR RED-SUPERIOR: Labeled left breast ID 3 . Received fresh on 07/11/2025 (in formalin at 9:22 AM), is a single, fairly intact, 22 gram excision which is received previously inked by the surgeon as follows: anterior-green, inferior-blue, lateral-orange, medial-yellow, posterior-black and superior-red. The specimen is serially sectioned and sequentially from medial to lateral into six slices. The contiguous cut surfaces show soft, yellow, lobular adipose tissue intermixed with focal dense, white fibrous tissue. A Mag seed is identified within slice four and is contiguous with focal surrounding hemorrhage, suggestive of a biopsy site. A mass is not identified. The specimen is submitted in entirety in fourteen cassettes, per diagram. A top hat clip is found in cassette 8 at microtomy. 1-2 medial margin, taken perpendicularly, two pieces-slice 1 3-6 sequential sections, one piece each-slices 2-3 7-11 targeted area (8-mag seed removed from this tissue; top hat clip found at microtomy in cassette 8), one piece each-slices 4-5 12-14 lateral margin, taken perpendicularly, two pieces each-slice 6 D. Breast, Right, LATERAL REEXICSION RIGHT BREAST ORANGE-NEW LATERAL MARGIN GREEN-ANTERIOR BLUE-INFERIOR YELLOW-MEDIAL BLACK-POSTERIOR RED-SUPERIOR: Labeled lateral R breast R ID 4 . Received fresh on 07/11/2025 (in formalin at 10:24 AM), is a single, fairly intact, 21 gram, reexcision which is received previously inked by the surgeon as follows: New lateral margin-orange, anterior-green, inferior-blue, medial-yellow, posterior-black and superior-red. The specimen measures 4.9 cm (medial to lateral) x 3.5 cm (superior to inferior) x up to 1.9 cm (anterior to posterior). The specimen is serially sectioned sequentially from medial to lateral into seven cassettes. The contiguous cut surfaces show dense, yellow-white, focally cystic fibroadipose tissue. A mini cork clip is identified in slice 4, indicative of a biopsy site. A mass is not identified. The specimen is submitted in entirety in eighteen cassettes, per diagram. 1-2 medial margin, taken perpendicularly, two pieces-slice 1 3-7 sequential sections, one piece each-slices 2-3 8-10 sequential trisected slice (8-clip removed from this tissue), one piece each-slice 4 11-15 sequential sections, one piece each-slices 5-6 16-18 lateral margin, taken perpendicularly, two pieces-slice 7 E. Breast, Right, SUPERIOR AND LATERAL REEXICSION RIGHT BREAST GREEN-ANTERIOR BLUE-INFERIOR ORANGE-LAERAL YELLOW-MEDIAL RED-SUPERIOR: Labeled superior breast R ID 5 . Received fresh on 07/11/2025 (in formalin at 10:24 AM), is a single minimally disrupted, 24 gram, re-excision which is received previously inked by the surgeon as follows: Anterior-green, inferior-blue, lateral-orange, medial-yellow and superior-red. The specimen measures 5.9 cm (medial to lateral) x 4.0 cm (superior to inferior) x up to 1.9 cm (anterior to posterior). The posterior margin is not inked and inked black by the prosector. The specimen is serially sectioned sequentially from medial to lateral into slices. The cut surfaces show dense, yellow-white fibroadipose tissue. The tissue is focally cystic and contains a 2.0 cm in greatest diameter smooth-walled cyst which contains brown fluid. A mass is not identified. The specimen is submitted in entirety in twenty cassettes, per diagram. 1-2 medial margin, taken perpendicularly, two and 1 piece respectively-slice one 2-18 sequential sections, one piece each-slices 2-8 19-20 lateral margin, taken perpendicularly, two pieces-slice 9 TS 5 3:41 PM [facility] Intraoperative Consultation A. Breast, Right, RIGHT BREAST MASS GREEN-ANTERIOR BLUE-INFERIOR ORANGE-LATERAL YELLOW-MEDIAL BLACK-POSTERIOR RED-SUPERIOR: Gross intraoperative consultation: No definite biopsy site identified Mary Chowdary MD 07/11/[address] Florian B. Breast, Right, ANTERIOR RE-EXCISON RIGHT BREAST GREEN- NEW ANTERIOR MARGIN BLUE-INFERIOR ORANGE-LATERAL YELLOW-MEDIAL BLACK-POSTERIOR RED-SUPERIOR: Gross intraoperative consultation: No definite biopsy site identified Mary Chowdary MD 07/11/[address] Florian 5 3:41 PM [facility] Special Stains A. To evaluate the area of cystic hypersecretory change with nuclear atypia, immunohistochemical stains were performed with appropriate controls. CK5 (blocks A9 and A12): Maintained and attenuated layer of myoepithelial cells; no staining of atypical cells E-cadherin (A9): Diffuse expression, excluding pleomorphic lobular carcinoma in situ To exclude invasive neoplasm in a focus suspicious for sclerosing adenosis, additional stains were performed on block A13. Calponin: Expressed in myoepithelial cell in this focus p63: Expressed in myoepithelial cell in this focus This supports sclerosing adenosis. Breast DCIS Biomarkers: Estrogen Receptor: Low positive (1-5% Positive nuclei, average intensity: weak) Internal controls stained appropriately All external controls stained appropriately FFPE Block: A9 and A12 Cold Ischemia and Fixation Times: Meets requirements specified in the latest version of the ASCO/CAP guidelines These tests have not been validated for use on decalcified tissue, non-formalin fixed tissue, or tissue fixed outside of the ASCO/CAP guidelines. ASCO/CAP criteria for evaluation: ER: Staining evaluation ER: Low positive=1-10% positive nuclei, Positive >10% positive nuclei Detection system: Polymer HRP, [facility]-developed tests In Vitro Diagnostic: ER clone SP1 Cell Kyle B. To exclude the possibility of invasive neoplasm in the focus of sclerosing adenosis, immunohistochemical stains were performed with appropriate controls. Calponin: Expressed in myoepithelial cell in this focus CK5: Expressed in myoepithelial cell in this focus This supports sclerosing adenosis. C. To exclude the possibility of invasive neoplasm in a focus suspicious for complex sclerosing lesion, immunohistochemical stains were performed with appropriate controls. Calponin: Expressed in myoepithelial cell in this focus CK5: Expressed in myoepithelial cell in this focus This supports complex sclerosing lesion. 3:41 PM [facility] Disclaimer NOTE: The immunohistochemical tests and in situ hybridization tests were developed and their performance characteristics were determined by [facility]. They have not been cleared or approved by the U.S. Food and Drug Administration. The FDA has determined that such clearance or approval is not necessary. These tests are used for clinical purposes. They should not be regarded as investigational or for research. This laboratory is certified under the Clinical Laboratory Improvement Amendments of 1988 (CLIA) as qualified to perform high complexity clinical laboratory testing. (controls appropriate) Unless otherwise specified, all tissue is 10% NB formalin fixed and paraffin embedded. 3:41 PM [facility] Tissue Right breast structure / Unknown 07/11/2025 8:47 AM EDT 07/11/2025 9:33 AM EDT Tissue specimen (specimen) Right breast structure / Unknown 07/11/2025 8:53 AM EDT 07/11/2025 9:33 AM EDT Tissue specimen (specimen) Left breast structure / Unknown 07/11/2025 9:05 AM EDT 07/11/2025 9:33 AM EDT Tissue specimen (specimen) Right breast structure / Unknown 07/11/2025 9:51 AM EDT 07/11/2025 10:26 AM EDT Tissue specimen (specimen) Right breast structure / Unknown 07/11/2025 10:06 AM EDT 07/11/2025 10:26 AM EDT us Yaneth Florian MD LAB PATHOLOGY ORDERABLE S Edited Result - Final [facility] ([facility] [address] [place] [address], * TH AN ENDOTRACHEAL(NO CHARGE) (07/11/2025 7:54 AM EDT) Ronak Esteban SRNA - 07/11/2025 7:54 AM EDT JEOVANY Torres 07/11/2025 7:56 AM General Information and Staff Patient location during procedure: OR Anesthesiologist: Harvinder Alejandro MD Other anesthesia staff: JEOVANY Torres Performed: anesthesiologist and other anesthesia staff Performed by: JEOVANY Torres Authorized by: Fabio Raya MD Intubation Additional Comments #4 LMA placed by JEOVANY. Unable to ventilate, small amount of bloody secretions sx from oropharynx. Converted to #7 ETT, MAC [address] Alejandro. Airway not difficult Reason: elective Final Airway Details Successful airway: ETT Cuffed: yes Successful intubation technique: direct laryngoscopy Endotracheal tube insertion site: oral Blade: Shimon Blade size: #3 ETT size (mm): 7.0 Cormack-Lehane Classification: grade IIa - partial view of glottis Placement verified by: chest auscultation, capnometry and palpation of cuff Measured from: gums ETT to gums (cm): 21 Ventilation between attempts: BVM Final airway type: endotracheal airway Indications and Patient Condition Indications for airway management: anesthesia Sedation level: Yes Preoxygenated: yesSoft Tissue Damage: No Dentition Unchanged: Yes Patient position: neutral MILS maintained throughout Mask difficulty assessment: 1 - vent by mask us Fabio Raya MD ANESTHESIA ORDERABLES Final Re sult * MG Plcmnt Breast Seed Loc Dev 1st Lesion Bilat (07/04/2025 3:01 PM EDT) Anatomical Region Laterality Modality Breast Bilateral Mammography 07/04/2025 4:08 PM EDT Impressions 07/04/2025 4:16 PM EDT Stereotactic mammography was used to localize and guide bilateral breast preoperative localization marker placement. The patient had a vasovagal event after placing the left introducer which was managed conservatively. Postprocedure mammography was performed RECOMMENDATION: Pathology pending for both breasts. -------- FINAL REPORT -------- Dictated By: Mario Moncada Dictated Date: 07/04/2025 16:08 ET Assigned Physician: Mario Moncada Reviewed and Electronically Signed By: Mario Moncada Signed Date: 07/04/2025 16:16 ET Workstation ID: [id number] Transcribed By: Self Edit Transcribed Date: 07/04/2025 16:08 ET Narrative 07/04/2025 4:16 PM EDT EXAM: STEREOTACTIC GUIDED BREAST SURGICAL SITE LOCALIZATION, BILATERAL PRE OPERATIVE MAG SEED PLACEMENT : Mag seed placement POSTPROCEDURE MAMMOGRAPHY: Was performed EXAM DATE AND TIME: 07/01/2025 10:22 AM HISTORY: Preoperative mag seed localization of biopsy site marker in the right breast requested. Preoperative mag seed localization of biopsy site marker in the left breast requested. PROCEDURE: Informed consent was obtained. A procedure pause was performed including patient identification using 3 identifiers. RIGHT BREAST Preprocedure imaging demonstrated: A TOP HAT biopsy site marker Using sterile technique and lidocaine anesthesia, stereotactic multi-directional vacuum assisted core surgical site localization of the right breast was performed from a superior approach. An 18-gauge introducer was used. There was documentation of appropriate deployment of the preoperative localization device with digital archive. A radiopaque MAG SEED preoperative localization marker was deployed at the site for future reference. Upon completion of the procedure, pressure was applied until adequate hemostasis was obtained. The patient tolerated the procedure well and was discharged in good condition after being educated regarding post procedure care and instructions and contact information should she be concerned about a complication. Postprocedure mammography: Was performed Laterality: RIGHT TISSUE DENSITY: The breasts are heterogeneously dense, which may obscure small masses. (BI-RADS category C) FINDINGS: The surgical site marker, MAG SEED, is slightly posterior to the biopsy site marker. There is no evidence of immediate complication. No new suspicious findings. Distance from surgical site localizing MAG SEED from Center of target: 1.0 cm LEFT BREAST Preprocedure imaging demonstrated: A TOP HAT biopsy site marker Using sterile technique and lidocaine anesthesia, stereotactic multi-directional vacuum assisted core surgical site localization of the left breast was performed from a lateral approach. An 18-gauge introducer was used. The patient had a VASOVAGAL EPISODE of a few minutes. This occurred with the needle in place. Conservative measures including elevation of the legs and anti-Trendelenburg positioning as well as cold packs were implemented. The patient recovered sufficiently to complete the procedure. There was documentation of appropriate deployment of the preoperative localization device with digital archive. A radiopaque MAG SEED preoperative localization marker was deployed at the site for future reference. Upon completion of the procedure, pressure was applied until adequate hemostasis was obtained. The patient tolerated the procedure well and was discharged in good condition after being educated regarding post procedure care and instructions and contact information should she be concerned about a complication. Postprocedure mammography: Was performed Laterality: LEFT TISSUE DENSITY: The breasts are heterogeneously dense, which may obscure small masses. (BI-RADS category C) FINDINGS: The surgical site marker, MAG SEED, appears appropriately positioned. The patient had a vasovagal episode which was managed conservatively. The patient was monitored in the department until she had recovered fully. No new suspicious findings. Distance from surgical site localizing MAG SEED from Center of target: 0.1 cm Procedure Note Mario Moncada MD - 07/04/2025 EXAM: STEREOTACTIC GUIDED BREAST SURGICAL SITE LOCALIZATION, BILATERAL PRE OPERATIVE MAG SEED PLACEMENT : Mag seed placement POSTPROCEDURE MAMMOGRAPHY: Was performed EXAM DATE AND TIME: 07/01/2025 10:22 AM HISTORY: Preoperative mag seed localization of biopsy site marker in theright breast requested. Preoperative mag seed localization of biopsy site marker in the leftbreast requested. PROCEDURE: Informed consent was obtained. A procedure pause was performed including patient identification using 3identifiers. RIGHT BREAST Preprocedure imaging demonstrated: A TOP HAT biopsy site marker Using sterile technique and lidocaine anesthesia, stereotacticmulti-directional vacuum assisted core surgical site localization of theright breast was performed from a superior approach. An 18-gauge introducer was used. There was documentation of appropriatedeployment of the preoperative localization device with digital archive. A radiopaque MAG SEED preoperative localization marker was deployed at thete for future reference. Upon completion of the procedure, pressure was applied until adequatehemostasis was obtained. The patient tolerated the procedure well and was discharged in goodcondition after being educated regarding post procedure care andinstructions and contact information should she be concerned about acomplication. Postprocedure mammography: Was performed Laterality: RIGHT TISSUE DENSITY: The breasts are heterogeneously dense, which may obscuresmall masses. (BI-RADS category C) FINDINGS: The surgical site marker, MAG SEED, is slightly posterior tothe biopsy site marker. There is no evidence of immediate complication. No new suspicious findings. Distance from surgical site localizing MAG SEED from Center of target:1.0 cm LEFT BREAST Preprocedure imaging demonstrated: A TOP HAT biopsy site marker Using sterile technique and lidocaine anesthesia, stereotacticmulti-directional vacuum assisted core surgical site localization of theleft breast was performed from a lateral approach. An 18-gauge introducer was used. The patient had a VASOVAGAL EPISODE of a few minutes. This occurred withthe needle in place. Conservative measures including elevation of thelegs and anti- Trendelenburg positioning as well as cold packs wereimplemented. The patient recovered sufficiently to complete theprocedure. There was documentation of appropriate deployment of the preoperativelocalization device with digital archive. A radiopaque MAG SEED preoperative localization marker was deployed at thete for future reference. Upon completion of the procedure, pressure was applied until adequatehemostasis was obtained. The patient tolerated the procedure well and was discharged in goodcondition after being educated regarding post procedure care andinstructions and contact information should she be concerned about acomplication. Postprocedure mammography: Was performed Laterality: LEFT TISSUE DENSITY: The breasts are heterogeneously dense, which may obscuresmall masses. (BI-RADS category C) FINDINGS: The surgical site marker, MAG SEED, appears appropriatelypositioned. The patient had a vasovagal episode which was managed conservatively. The patient was monitored in the department until she had recoveredfully. No new suspicious findings. Distance from surgical site localizing MAG SEED from Center of target:0.1 cm IMPRESSION: Stereotactic mammography was used to localize and guide bilateral breastpreoperative localization marker placement. The patient had a vasovagal event after placing the left introducer whichwas managed conservatively. Postprocedure mammography was performed RECOMMENDATION: Pathology pending for both breasts. -------- FINAL REPORT -------- Dictated By: Mario Moncada Dictated Date: 07/04/2025 16:08 ET Assigned Physician: Mario Moncada Reviewed and Electronically Signed By: Mario Moncada Signed Date: 07/04/2025 16:16 ET Workstation ID: [id number] Transcribed By: Self Edit Transcribed Date: 07/04/2025 16:08 ET Yaneth Florian MD IMG BI PROCEDURES Final Result * ECG 12 lead (06/27/2025 8:23 AM EDT) Ventricular Rate ECG 88 BPM GEMUSE Atrial Rate 88 BPM GEMUSE P-R Interval 166 ms GEMUSE QRS Duration 96 ms GEMUSE Q-T Interval 372 ms GEMUSE QTc 450 ms GEMUSE P Wave Moffit 39 degrees GEMUSE R Moffit 58 degrees GEMUSE T Moffit 26 degrees GEMUSE ECG Interpretation Normal sinus rhythm Low voltage QRS No previous ECGs available Confirmed by SANDRA MORALES ([id number]) on 06/27/2025 8:57:26 PM GEMUSE 06/27/2025 8:23 AM EDT 06/27/2025 8:57 PM EDT us Yaneth Florian MD ECG ORDERABLES Final R esult GEMUSE * COLONOSCOPY Anesthesia - MAC; SP ENDOSCOPY (11/02/2024 9:48 AM EST) Anatomical Region Laterality Modality Other 11/02/2024 9:26 AM EST Impressions 11/02/2024 9:48 AM EST - The examined portion of the ileum was normal. - Diverticulosis in the entire examined colon. - The examination was otherwise normal on direct and retroflexion views. - No specimens collected. Recommendation: - Repeat colonoscopy in 10 years for screening purposes. Narrative 11/02/2024 9:48 AM EST [facility] Patient Name: Alysa Graham Procedure Date: 11/02/2024 9:26 AM Date of : 1970 Age: 54 Gender: Female Note Status: Finalized Attending MD: April Rausch MD, Procedure Date No Time: 11/02/2024 Procedure: Colonoscopy Indications: Screening for colorectal malignant neoplasm Providers: April Rausch MD Referring MD: Rahul Cam MD Medicines: Propofol per Anesthesia Complications: No immediate complications. Estimated Blood Loss: Estimated blood loss: none. Procedure: Pre-Anesthesia Assessment: - ASA Grade Assessment: II - A patient with mild systemic disease. After I obtained informed consent, the scope was passed under direct vision. Throughout the procedure, the patient's blood pressure, pulse, and oxygen saturations were monitored continuously.The Colonoscope was introduced through the anus and advanced to the terminal ileum. The colonoscopy was performed without difficulty. The patient tolerated the procedure well. The quality of the bowel preparation was excellent. Findings: The perianal and digital rectal examinations were normal. The terminal ileum appeared normal. Multiple medium-mouthed diverticula were found in the entire colon. The exam was otherwise without abnormality on direct and retroflexion views. Procedure Code(s): --- Professional --- G0121, Colorectal cancer screening; colonoscopy on individual not meeting criteria for high risk Diagnosis Code(s): --- Professional --- Z12.11, Encounter for screening for malignant neoplasm of colon CPT copyright 2020 [employer]. All rights reserved. The codes documented in this report are preliminary and upon research worker kitchen review may be revised to meet current compliance requirements. April Rausch MD 11/02/2024 9:48:10 AM This report has been signed electronically.April Rausch MD Number of Addenda: 0 Note Initiated On: 11/02/2024 9:26 AM Scope In: Scope Out: Endoscopy Department at [facility] - [address] [place] [id number] Procedure Note April Rausch MD - 11/02/2024 [facility] Patient Name: Alysa Graham Procedure Date: 11/02/2024 9:26 AM Date of : 1970 Age: 54 Gender: Female Note Status: Finalized Attending MD: April Rausch MD, Procedure Date No Time: 11/02/2024 Procedure: Colonoscopy Indications: Screening for colorectal malignant neoplasm Providers: April Rausch MD Referring MD: Rahul Cam MD Medicines: Propofol per Anesthesia Complications: No immediate complications. Estimated Blood Loss: Estimated blood loss: none. Procedure: Pre-Anesthesia Assessment: - ASA Grade Assessment: II - A patient with mild systemic disease. After I obtained informed consent, the scope was passed under direct vision. Throughout theprocedure, the patient's blood pressure, pulse, and oxygen saturations were monitored continuously.The Colonoscope was introduced through the anus and advanced to the terminal ileum. The colonoscopy was performed without difficulty. The patient tolerated the procedure well. The quality of the bowel preparation was excellent. Findings: The perianal and digital rectal examinations were normal. The terminal ileum appeared normal. Multiple medium-mouthed diverticula were found inthe entire colon. The exam was otherwise without abnormality ondirect and retroflexion views. Procedure Code(s): --- Professional --- G0121, Colorectal cancer screening; colonoscopy on individual not meeting criteria for high risk Diagnosis Code(s): --- Professional --- Z12.11, Encounter for screening for malignantneoplasm of colon CPT copyright 2020 [employer]. All rights reserved. The codes documented in this report are preliminary and upon research worker kitchen reviewmay be revised to meet current compliance requirements. April Rausch MD 11/02/2024 9:48:10 AM This report has been signed electronically.April Rausch MD Number of Addenda: 0 Note Initiated On: 11/02/2024 9:26 AM Scope In: Scope Out: Endoscopy Department at [facility] - [address] [place] [phone] IMPRESSION: - The examined portion of the ileum was normal. - Diverticulosis in the entire examined colon. - The examination was otherwise normal on directand retroflexion views. - No specimens collected. Recommendation: - Repeat colonoscopy in 10 years for screening purposes. April Rausch MD GI~PROCEDURE ORDERABLES Final Result from Last 3 Months or Most Recently Relevant to Health Maintenance Insurance [facility] Advance Directives * Full Code - Default (Latest Code Status on File) Date Activated Date Inactivated Comments 07/11/2025 6:15 AM 07/11/2025 5:23 PM This is or fuentes is used when code status has not been discussed with the patient, or code status is otherwise unknown/unconfirmed To update the patient's code status, place a code status order. Do not modify or discontinue any currently active code status orders. Care Teams Compressor Mechanic Relationship Specialty Start Date End Date Rahul Cam MD [address] [place] [address] PCP - General Internal Medicine 11/09/16
--- OUTSIDE RECORDS SUMMARY | 2025-08-16 12:43 | XMS_ITS | Encounter Summary ---
Author Organization [facility] Address [address] [place] [address] Care Team Providers Care Palm And Back Forger Name Role Phone Rahul Cam MD Primary Care Provider [phone] Encounter Details Date Type Department Care Team (Late Contact Info) Description 07/24/2025 Results Follow-Up Breast Care [facility] [address] [place] [phone] Yaneth Florian MD [address] [place] [phone] Social History Tobacco Use Types Packs/Day [...] Description 09/09/2025 9:30 AM EST Office Visit [facility] Hematology Oncology [address] [place] [phone] Breann Mendez, DO [address] [place] [address] documented as of this encounter Visit Diagnoses Not on filedocumented in this encounter Care Teams Palm And Back Forger Relationship Specialty Start Date End Date Rahul Cam MD [address] [place] [id number] PCP - General Internal Medicine 11/09/16 documented as of this encounter
--- OUTSIDE RECORDS SUMMARY | 2025-08-16 12:43 | XMS_ITS | Clinical Summary ---
Author Organization [facility] Prior to 02/09/25 Address [address] [place] [address] Care Team Providers Care Television Agent Name Role Phone Rahul Cam MD Primary Care Provider Allergies No known active allergies Medications No known medications Active Problems Problem Noted Date Diagnosed Date Intramural leiomyoma of uterus 01/19/2017 Social History Tobacco Use Types Packs/Day Years Used Date Smoking Tobacco: Never Alcohol Use Standard Drinks/Week Comments No 0 (1 standard drink = 0.6 oz pur e alcohol) Sex and Gender Information Value Date Recorded Sex Assigned at Not on file Gender Identity Not on file Sexual Orientation Not on file Last Filed Vital Signs Vital Sign Reading Time Taken Comments Blood Pressure - - Pulse - - Temperature - - Respiratory Rate - - Oxygen Saturation - - Inhaled Oxygen Concentration - - Weight 97.5 kg (215 lb) 01/20/2017 11:09 AM EDT Height 170.2 cm (5' 7 ) 01/20/2017 11:09 AM EDT Body Mass Index 33.67 01/20/2017 11:09 AM EDT Plan of Treatment Health Maintenance Due Date Last Done Comments Hepatitis B Vaccines (1 of 3 - 3-dose series) 1970 Hepatitis C Screening 1970 COVID-19 Vaccine (#1) 1970 Depression Screening 1982 Preventative Health Evaluation 01/07/1988 DTap / Tdap / Td (1 - Tdap) 1989 Cervical Cancer Screening (P ap Smear) 1991 Colon Cancer Screening (Colonoscopy) 2015 Breast Cancer Screening (Mammogram) 01/07/2020 Shingrix-Zoster Vaccine (1 of 2) 01/07/2020 Influenza Vaccine (#1) 2025 Pneumococcal Vaccine Aged Out No long er eligible based on patient's age to complete this topic RSV Ped < 20 months Aged Out No longe r eligible based on patient's age to complete this topic Care Teams Television Agent Relationship Specialty Start Date End Date Rahul Cam MD PCP - General Internal Medicine 01/14/17
== END 2025-08-16 10:41 | disposition home or self-care (01) ==
LOC: HO.MAMMO 10:40
PROVIDERS: Visit Provider Internal Medicine
DX: Z13.820 Encounter for screening for osteoporosis (principal); Z78.0 Asymptomatic menopausal state; M81.0 Age-related osteoporosis without current pathological fracture
CPT/HCPCS: 77080

== ENCOUNTER → 2025-08-16 11:00 | Outpatient (BNV) | payer BC, SELFPAY | PROVIDERS: Visit Provider Radiology Diagnostic Radiology | DX: E28.39 Other primary ovarian failure (principal) | CPT/HCPCS: 77080 ==